=== PATIENT | female | born 2000 | race Hispanic/Latino ===

== ENCOUNTER 2025-04-30 12:49 | Emergency (ER) | payer OTHER ==
[~2025-04-30] VITALS: Ht 167.6 cm; Wt 128.8 kg
[2025-04-30 13:36] LABS: KETONE, URINE AUTO RFX NEGATIVE (NEGATIVE); LEUKOCYTE ESTERASE UR AUTO RFX TRACE (NEGATIVE); MUCUS, URINE RFX SMALL (NEGATIVE); NITRITE, URINE AUTO RFX NEGATIVE (NEGATIVE); RBC, URINE AUTO RFX 1 /HPF (0-3); SQUAM EPITHELIAL CELL UR AURFX 3 /HPF (0-6); WBC, URINE AUTO RFX 2 /HPF (0-3)
[2025-04-30] MEDS ORDERED: FLUC150T9 PO (15:33)
[2025-04-30 15:39] VITALS: BP 110/68; TEMP 98; O2SAT 99
[2025-04-30 15:45] LABS: GC DNA AMPLIFICATION NEGATIVE (NEGATIVE)
== END 2025-04-30 15:39 | disposition home or self-care (01) ==
LOC: M ED 12:49
DX: N76.0 Acute vaginitis (principal); J45.909 Unspecified asthma, uncomplicated